=== PATIENT | female | born 1960 ===

== ENCOUNTER 2017-09-19 07:11 | Day surgery (SDC) | payer MEDICARE, MEDICAID ==
[2014-09-12 11:29] VITALS: BMI 28.3
[2017-09-19] MEDS ORDERED: Lidocaine 1% w Epi 1:100,000 Inj ONE (07:47)
[2017-09-19 08:11] VITALS: TEMP 98.8
[2017-09-19] MEDS ORDERED: Clindamycin 150 mg/mL Inj ONE (08:58)
[2017-09-19] MEDS ORDERED: Propofol 10 mg/ml Inj (20 ML) ONE (09:12)
[2017-09-19] MEDS ORDERED: Midazolam 2 MG/2 ML VIAL ONE (09:12)
[2017-09-19] MEDS ORDERED: Sodium Chloride 0.9% 1,000 ML IV SCH (10:00)
[2017-09-19 11:08] VITALS: RESP 18
[2017-09-19 11:19] VITALS: BP 121/57; PULSE 76; O2SAT 98
--- NOTE | 2017-09-19 11:27 | RAD ---
PROCEDURE: Fluoroscopy up to 1 hour HISTORY: REMOVAL SPINAL CORD STIMULATOR COMPARISON: TECHNIQUE: Fluoroscopy was provided in the operating room. 14.5 seconds of fluoro time were used. Five images were submitted FINDINGS: The study shows removal of the stimulator device over the right side of the pelvis IMPRESSION: As above
--- NOTE | 2017-09-19 18:28 | OP ---
PROCEDURE DATE: 09/16/2017 TYPE OF SURGERY: Removal of spinal cord stimulator lead and internal pulse generator under fluoroscopic guidance. PREOPERATIVE DIAGNOSES: 1. Post lumbar laminectomy syndrome. 2. Low back pain. 3. Failed spinal cord stimulator system. POSTOPERATIVE DIAGNOSES: 1. Post lumbar laminectomy syndrome. 2. Low back pain. 3. Failed spinal cord stimulator system. SURGEON: Maykel Dillon MD TYPE OF ANESTHESIA: Local anesthesia, conscious sedation. ANESTHESIOLOGIST: Bettie Montgomery MD BLOOD LOSS: Approximately 10 mL. METHOD OF SURGERY: The patient signed an informed consent from in the preop area after all risks and complications were explained and all questions were answered. An IV was started in the preop area and IV fluid administration continued throughout the procedure. Blood pressure, heart rate, pulse oximetry, cardiac monitoring were monitored throughout the procedure. Intravenous sedation appropriate to the procedure was administered by the anesthesiologist and was accurately reflected in the patient chart. Clindamycin, 600 mg was injected preoperatively. The patient was prepped and draped in sterile fashion in prone position. The patient's spine was surveyed under fluoroscopic visualization and appropriate anatomical landmarks were identified. Removal of spine cord stimulator leads and internal pulse generator - After appropriate local anesthesia with 1% lidocaine with epinephrine, I mixed with sodium bicarbonate as a buffer. Two incisions were made, one horizontal incision was made in right gluteal area above the internal pulse generator and one midline lumbar incision was made above the anchored spinal cord stimulator lead. First the right gluteal incision, which was about 6 cm horizontal incision was made using 11 blade. Then the subcutaneous tissue was dissected down till the internal pulse generator was retrieved. At this point, the internal pulse generator was pulled out of the right gluteal pocket. The leads were intact and appropriate hemostasis was maintained. The midline lumbar incision was made using 11 blade after appropriate local anesthesia and subcutaneous tissue was dissected down to the deep fascia where the leads were anchored to the deep fascia. The anchored leads were identified under direct fluoroscopic visualization and using blunt careful dissection, the anchored leads were dissected off the deep fascia. At this point, the leads were pulled out of the posterior epidural space and after the lead were retrieved out, then the internal pulse generator in the right gluteal area was pulled out with all the leads and then after doing that, the incisions and the epidural space were scanned again under the direct fluoroscopic visualization making sure that nothing was left and the leads and internal pulse generator were intact upon removal. This was followed by closure of both incisions using 2-0 Vicryl for subcutaneous tissue and skin glue Dermabond for the skin. The patient tolerated the procedure very well, was in good condition at the conclusion of the procedure. COMPLICATIONS: None. DISPOSITION: 1. The patient was discharged to recovery room in good condition. 2. The patient to apply ice pack to the incision site. 3. The patient to return to the office in 2 weeks for followup. 4. Postoperative instructions were handed and explained to the patient. Maykel Dillon MD
== END 2017-09-19 11:40 | disposition home or self-care (01) ==
LOC: SDS 07:11
PROVIDERS: ATTEND Specialist
DX: M96.1 Postlaminectomy syndrome, not elsewhere classified (principal); Z88.0 Allergy status to penicillin; Z91.040 Latex allergy status; Z91.018 Allergy to other foods; Z91.010 Allergy to peanuts
CPT/HCPCS: 63688; J2001; J2250; J2704; J3010; J7040; J7120

== ENCOUNTER 2018-10-29 16:18 | Emergency (ER) | payer MEDICARE, MEDICAID ==
[2018-10-29 16:19] VITALS: BMI 28.3
[2018-10-29 16:37] VITALS: RESP 18; TEMP 98
[2018-10-29] MEDS ORDERED: Sodium Chloride 0.9% 1,000 ML IV SCH (16:45)
--- NOTE | 2018-10-29 17:15 | ED PDOC ---
Arrival/HPI - General Chief Complaint: Headache Time Seen by Provider: 10/29/18 16:26 Historian: Patient, Family (daughter helped provide information) - History of Present Illness Narrative History of Present Illness (Text): 10/29/18 16:38 58 F with PMHx of asthma, hypertension, presents with cc of bilateral headache described as constant pounding for past 4-5 days, worse this morning. Pt's daughter reports pt took medicine for hypertension as usual this morning and again 2 hours ago, noting patient's blood pressure was about 178 when first checked and then approximately 191/100 when checked again. Pt states headache was mild at first, noting associated neck stiffness. Daughter reports pt sometimes gets headaches like this when her blood pressure goes up, noting occasional neck pains and back pain. Pt denies any fever, vomiting, or any other complaint. PMD: Nicolas Portillo Time/Duration: > week (pt notes onset as past 4-5 days, worse this morning) Symptom Onset: Gradual Symptom Course: Unchanged Quality: Other (pt describes headache as constant pounding ) Activities at Onset: Light Past Medical History - Provider Review Nursing Documentation Reviewed: Yes - Infectious Disease Hx of Infectious Diseases: None - Reproductive Menopause: Yes - Cardiac Hx Pacemaker: No - Pulmonary Hx Respiratory Disorders: Yes Hx Asthma: Yes - Neurological Hx Paralysis: No - Hematological/Oncological Hx Blood Transfusions: Yes Hx Blood Transfusion Reaction: No - Musculoskeletal/Rheumatological Hx Musculoskeletal Disorders: Yes - Psychiatric Hx Emotional Abuse: No Hx Physical Abuse: No Hx Substance Use: No - Surgical History Hx Hysterectomy: Yes Hx Joint Replacement: Yes Hx Musculoskeletal Surgery: Yes Hx Open Reduction Internal Fixation: Yes - Anesthesia Hx Anesthesia Reactions: No Hx Malignant Hyperthermia: No - Suicidal Assessment Feels Threatened In Home Enviroment: No Family/Social History - Physician Review Nursing Documentation Reviewed: Yes Family/Social History: No Known Family HX Smoking Status: Never Smoked Hx Alcohol Use: No Hx Substance Use: No Hx Substance Use Treatment: No Allergies/Home Meds Allergies/Adverse Reactions: Allergies latex Allergy (Severe, Verified 09/15/17 08:17) RASH peanut Allergy (Severe, Verified 09/15/17 08:17) RASH Penicillins Allergy (Severe, Verified 09/15/17 08:17) RASH sesame oil Allergy (Severe, Verified 09/15/17 08:17) RASH Home Medications: Home Meds Medication Instructions Recorded Confirmed Montelukast [Singulair] 10 mg PO DAILY 05/19/12 10/29/18 Albuterol HFA [Ventolin HFA 90 0.09 mg IH PRN PRN 09/15/17 10/29/18 mcg/actuation (8 g)] Multivitamin [Daily Melissa] 1 tab PO DAILY 09/15/17 10/29/18 Oxymorphone HCl [Opana ER] 30 mg PO BID 09/15/17 10/29/18 Pregabalin [Lyrica] 75 mg PO BID 09/15/17 10/29/18 Tizanidine HCl [Zanaflex] 8 mg PO HS 09/15/17 10/29/18 Zolpidem [Ambien] 10 mg PO HS 09/15/17 10/29/18 oxyCODONE [oxycodone Hydrochloride] 10 mg PO QID PRN 09/15/17 10/29/18 amLODIPine [Norvasc] 2.5 mg PO DAILY 10/29/18 10/29/18 Review of Systems - Physician Review All systems were reviewed & negative as marked: Yes (All other systems negative except that noted in the HPI.) Physical Exam - Physical Exam Narrative Physical Exam (Text): 10/29/18 16:38 Gen: VS reviewed, alert, well developed, well nourished, nontoxic, mild distress Eye: EOMI, PERRL. Photophobia. Neck: no JVD, supple, no adenopathy CV: regular rate, regular rhythm, no rubs, no murmer, S1, S2 Pulm: no distress, clear to auscultation no wheeze, no rhonchi, breath sounds equal, no rales. Abd: soft, nontender, no guarding, no rebound, no rigidity Ext: no edema. Skin: good color, no rash, no cyanosis. Psych: responds appropriately to questions, normal affect. Neuro: oriented x 3, CN2-12 intact grossly, motor intact, sensation intact. Vital Signs Reviewed: Yes Vital Signs Temp Pulse Resp BP Pulse Ox 10/29/18 16:36 98 F 70 18 155/71 H 94 L Temperature: Afebrile Blood Pressure: Hypertensive Pulse: Regular Respiratory Rate: Normal Appearance: Positive for: Well-Appearing, Non-Toxic Pain Distress: Mild Mental Status: Positive for: Alert and Oriented X 3 Medical Decision Making ED Course and Treatment: 10/29/18 16:38 Impression: 58 F presents with cc of bilateral headache described as constant pounding for past 4-5 days, worse this morning. Differential Diagnosis included but are not limited to: Plan: -- CT of head w/o contrast -- CMP -- Labs -- Imitrex Inj 6mg SC -- Reglan 10mg IVP -- IV fluids -- Tylenol 325mg tab PO -- Reassess and disposition Prior Visits: Notes and results from previous visits were reviewed. Progress Notes: 10/29/18 18:41 patient reports over 50% improvement of headache, no longer is photophobic, is now able to sit and ambulate without distress. at this time am awaiting CT result to rule out ICH in light of severe hypertension and will observe clinically. 10/29/18 19:29 patient feels much better and ready to go home. she now reports a significant improvement in headache. patient does no exhibit meningismus, is nontoxic appearing and stable discharge. it was recommended that the patient follow up with a neurologist and the patient reports that she already has one. clinical presentation consisteent with migraine headache. there were no acute severe signs of this headache such thunderclap, fever, trauma, or neuro deficits. - RAD Interpretation Narrative RAD Interpretations (Text): CT of head reviewed by radiologist, shows: Electronically signed on Oct 29, 2018 6:39:31 PM by: Marco Garcia M.D., FINDINGS: BRAIN No acute intraparenchymal hemorrhage. No mass lesion. No CT evidence for acute territorial infarct. No midline shift or extra-axial collections. VENTRICLES: No hydrocephalus. ORBITS: The orbits are unremarkable. SINUSES AND MASTOIDS: The paranasal sinuses and mastoid air cells are clear. BONES: No fracture. SOFT TISSUES: Unremarkable. IMPRESSION: No acute intracranial abnormality. Radiology Orders: 10/29/18 16:46 HEAD W/O CONTRAST [CT] Stat Bearing Maker: Radiologist - Medication Orders Current Medication Orders: Sodium Chloride (Sodium Chloride 0.9%) 1,000 mls @ 150 mls/hr IV .[id number] YENI Last Admin: 10/29/18 17:01 Dose: 150 mls/hr eMAR Start Stop Document 10/29/18 17:01 GMD (Rec: 10/29/18 17:01 D [facility]-20) Intravenous Solution Start Date 10/29/18 Start Time 17:01 Discontinued Medications Acetaminophen (Tylenol 325mg Tab) 975 mg PO STAT STA Stop: 10/29/18 16:45 Last Admin: 10/29/18 17:02 Dose: 975 mg Metoclopramide HCl (Reglan) 10 mg IVP STAT STA Stop: 10/29/18 16:45 Last Admin: 10/29/18 17:02 Dose: 10 mg IVP Administration Document 10/29/18 17:02 GMD (Rec: 10/29/18 17:02 GMD [facility] [place]-20) Charges for Administration # of IVP Administrations 1 Sumatriptan Succinate (Imitrex Inj) 6 mg SC STAT STA Stop: 10/29/18 16:45 Last Admin: 10/29/18 17:02 Dose: 6 mg Subcutaneous Administrations Document 10/29/18 17:02 GMD (Rec: 10/29/18 17:02 GMD [facility] [place]-20) Injection Site MAR Injection Site Left Deltoid Charges for Administration # of Subcutaneous Administrations 1 - Scribe Statement The provider has reviewed the documentation as recorded by the Scribe Cami Juarez All medical record entries made by the Scribe were at my direction and personally dictated by me. I have reviewed the chart and agree that the record accurately reflects my personal performance of the history, physical exam, medical decision making, and the department course for this patient. I have also personally directed, reviewed, and agree with the discharge instructions and disposition. Disposition/Present on Arrival - Present on Arrival Any Indicators Present on Arrival: No History of DVT/PE: No History of Uncontrolled Diabetes: No Urinary Catheter: No History of Decub. Ulcer: No History Surgical Site Infection Following: None - Disposition Have Diagnosis and Disposition been Completed?: Yes Diagnosis: Migraine headache Disposition: HOME/ ROUTINE Disposition Time: 19:31 Patient Plan: Discharge Condition: STABLE Discharge Instructions (ExitCare): Migraine Headache (DC) Additional Instructions: Return for any new or worsening symptoms. Follow up with your neurologist as soon as possible. Call tomorrow to make an appointment. DIMA TEAGUE, thank you for letting us take care of you today. Your provider was Dr. Buster Bernal and you were treated for migraine headache. The emergency medical care you received today was directed at your acute symptoms. If you were prescribed any medication, please fill it and take as directed. It may take several days for your symptoms to resolve. Return to the Emergency Department if your symptoms worsen, do not improve, or if you have any other problems. Please contact your doctor or call one of the physicians/clinics you have been referred to that are listed on the Patient Visit Information form that is included in your discharge packet. Bring any paperwork you were given at discharge with you along with any medications you are taking to your follow up visit. Our treatment cannot replace ongoing medical care by a primary care provider outside of the emergency department. Thank you for allowing the [facility] team to be part of your care today. If you had an X-Ray or CT scan: A Radiologist will review the ED reading if any change in treatment is needed we will contact you. If you had a blood, urine, or wound culture: It will take several days for the results, if any change in treatment is needed we will contact you. If you had an STI test: It will take 48 hours for the results. Please call after 1 week if you have not heard back. Referrals: Nicolas Benitez, DO [Primary Care Provider] - Follow up with primary Forms: [employer] (Iranian)
[2018-10-29 17:18] LABS: BASO # 0.01 K/mm3 (0.0-2.0); BASO % 0.2 % (0.0-3.0); EOS # 0.1 (0.0-0.7); EOS % 2.4 % (1.5-5.0); GRAN # 4.06 (1.4-6.5); HEMOGLOBIN 13.1 g/dL (12.0-16.0); LYMPH # 1.2 (1.2-3.4); LYMPH % 20.2 % (22.0-35.0); MEAN CELL VOLUME 92.3 fl (80.0-105.0); MEAN CORPUSCULAR HEMOGLOBIN 30.8 pg (25.0-35.0); MEAN CORPUSCULAR HGB CONC 33.3 g/dl (31.0-37.0); MEAN PLATELET VOLUME 9.6 fl (7.0-11.0); MONO # 0.4 (0.1-0.6); MONO % 7.2 % (1.0-6.0); RBC 4.26 10^6/uL (3.5-6.1); WHITE BLOOD COUNT 5.8 10^3/uL (4.5-11.0)
[2018-10-29 17:22] LABS: PARTIAL THROMBOPLASTIN TIME 30.5 Seconds (25.1-36.5); PROTHROMBIN TIME 11.4 SECONDS (9.4-12.5)
[2018-10-29 17:28] LABS: ALB/GLOB RATIO 1.1 (1.1-1.8); ALBUMIN 4.1 g/dL (3.0-4.8); ALT/SGPT 25 U/L (7-56); AST/SGOT 30 U/L (14-36); BLOOD UREA NITROGEN 18 mg/dL (7-21); CALCIUM 9.2 mg/dL (8.4-10.5); GFR NON-AFRICAN AMERICAN > 60
[2018-10-29 19:23] VITALS: BP 115/65; PULSE 71; O2SAT 98
--- NOTE | 2018-10-30 08:26 | CT ---
Date of service: 10/29/2018 PROCEDURE: CT HEAD WITHOUT CONTRAST. HISTORY: headache, ICH? COMPARISON: None available. TECHNIQUE: Axial computed tomography images were obtained through the head/brain without intravenous contrast. Radiation dose: Total exam DLP = 1017.7 mGy-cm. This CT exam was performed using one or more of the following dose reduction techniques: Automated exposure control, adjustment of the mA and/or kV according to patient size, and/or use of iterative reconstruction technique. FINDINGS: HEMORRHAGE: No intracranial hemorrhage. BRAIN: No mass effect or edema. No atrophy or chronic microvascular ischemic changes. VENTRICLES: Unremarkable. No hydrocephalus. CALVARIUM: Unremarkable. PARANASAL SINUSES: Unremarkable as visualized. No significant inflammatory changes. MASTOID AIR CELLS: Unremarkable as visualized. No inflammatory changes. OTHER FINDINGS: None. IMPRESSION: Normal CT of the Head.
== END 2018-10-29 19:37 | disposition home or self-care (01) ==
LOC: ED 16:18
DX: G43.909 Migraine, unspecified, not intractable, without status migrainosus (principal); I10 Essential (primary) hypertension
CPT/HCPCS: 70450; 80053; 85025; 85610; 85730; 96372; 96374; 99285; J2765; J3030; J7030

== ENCOUNTER 2018-11-20 06:46 | Day surgery (SDC) | payer MEDICARE, MEDICAID ==
[2018-11-20 07:24] VITALS: BMI 28.3
[2018-11-20] MEDS ORDERED: Lidocaine 1% w Epi 1:100,000 Inj ONE ×2 (07:30→07:31)
[2018-11-20] MEDS ORDERED: Liquid Adhesive TOP ONE (07:30)
[2018-11-20] MEDS ORDERED: Bupivacaine 0.5% 50 ML IJ ONE (07:31)
[2018-11-20] MEDS ORDERED: Sevoflurane - Inhalation Anesthetic Liq (250 ml) ONE (07:50)
[2018-11-20] MEDS ORDERED: Midazolam 2 MG/2 ML VIAL ONE (08:00)
[2018-11-20] MEDS ORDERED: Propofol 10 mg/ml Inj (20 ML) ONE (08:00)
[2018-11-20] MEDS ORDERED: Vancomycin 1 g Inj ONE (08:17)
[2018-11-20] MEDS ORDERED: Bupivacaine 0.5% Inj(30mL) IJ ONE (08:25)
[2018-11-20] MEDS ORDERED: Lidocaine 1% w Epi 1:100,000 Inj IJ ONE (08:25)
--- NOTE | 2018-11-20 09:23 | PCM.SURG1 ---
Surgeon's Initial Post Op Note - Surgeon's Notes Surgeon: Dr. Cleveland Johnson Utility System Repairer: Sachi Mohr, PGY2; Thompson Randall, PGY3 Type of Anesthesia: General LMA Anesthesia Administered By: Dr. Cordero Pre-Operative Diagnosis: left nipple discharge, dilated left breast ducts Operative Findings: epressible bloody nipple discharge, no palpable masses Post-Operative Diagnosis: same Operation Performed: left breast ductal excision Specimen/Specimens Removed: breast tissue from 7-8 o'clock, subareoalar, short tag medial, long tag towards nipple Estimated Blood Loss: EBL {In ML}: 5 Blood Products Given: N/A Drains Used: No Drains Post-Op Condition: Fair Date of Surgery/Procedure: 11/20/18 Time of Surgery/Procedure: 08:00
[2018-11-20 10:42] VITALS: RESP 18; TEMP 97.6
[2018-11-20 11:35] VITALS: BP 125/63; PULSE 91; O2SAT 97
--- NOTE | 2018-12-08 14:40 | OP ---
PROCEDURE DATE: 11/20/2018 PREOPERATIVE DIAGNOSIS: Bleeding from the left nipple at about 7 o' clock showed an intraductal papilloma. DESCRIPTION OF PROCEDURE: In the operating room, the patient was identified by name, name of procedure, laterality, my stoney, and the consent. The area was prepped with chlorhexidine, and after the appropriate three minutes, when it was dry, it was prepped and draped. The circumareolar incision was made centered around 7 o' clock and this was used to core out the ducts in this quadrant. Going laterally or actually medially, in a radial direction from the nipple, the underlying tissue was removed. The areola was cleaned out. There was nothing residual. There was nothing remarkable beyond. The area was cauterized. The incision was closed with Vicryl followed by subcuticular PDS. Pressure dressing was applied followed by surgery bra. The patient was taken to recovery room in good condition after the sponge and needle counts were declared as correct and the wound was injected with Marcaine. Cleveland Johnson MD
== END 2018-11-20 12:10 | disposition home or self-care (01) ==
LOC: SDS 06:46
PROVIDERS: ATTEND Surgery
DX: D24.2 Benign neoplasm of left breast (principal); I10 Essential (primary) hypertension

== ENCOUNTER 2019-02-08 08:32 | Outpatient (CLI) | payer MEDICARE, MEDICAID | END 2019-02-08 08:33 | disposition home or self-care (01) | LOC: PAT 08:32 ==

== ENCOUNTER 2019-02-12 06:22 | Day surgery (SDC) | payer MEDICARE, MEDICAID ==
[2019-02-12] MEDS ORDERED: Bupivacaine 0.5% 50 ML IJ ONE ×3 (07:23→08:23)
[2019-02-12 07:31] VITALS: BMI 28.3
[2019-02-12] MEDS ORDERED: Propofol 10 mg/ml Inj (20 ML) ONE (07:52)
[2019-02-12] MEDS ORDERED: Midazolam 2 MG/2 ML VIAL ONE ×2 (07:52→08:20)
[2019-02-12] MEDS ORDERED: Methylene Blue 10 mg/mL(10ml) IV ONE (08:28)
[2019-02-12] MEDS ORDERED: HYDROmorphone 0.5 mg/0.5 ml ISec IVP PRN (09:05)
[2019-02-12] MEDS ORDERED: Oxycodone/Acetaminophen 5/325 mg Tab PO PRN (09:07)
--- NOTE | 2019-02-12 09:07 | PCM.SURG1 ---
Surgeon's Initial Post Op Note - Surgeon's Notes Surgeon: Dr Johnson Ve Teacher: Dr Gomez PGY4, Darell MS3 Type of Anesthesia: General Endo Anesthesia Administered By: Dr Campbell Pre-Operative Diagnosis: Intraductal papilloma Operative Findings: see dictation Post-Operative Diagnosis: as above Operation Performed: Breast biopsy with excision of previous surgical site Specimen/Specimens Removed: previous surgical scar w/ underlying duct Estimated Blood Loss: EBL {In ML}: 5 Blood Products Given: N/A Drains Used: No Drains Post-Op Condition: Good Date of Surgery/Procedure: 02/12/19 Time of Surgery/Procedure: 09:06
[2019-02-12] MEDS ORDERED: Lactated Ringer's 1,000 ML IV SCH (09:15)
[2019-02-12] MEDS ORDERED: Oxycodone/Acetaminophen 5/325 mg Tab PO ONE (09:55)
[2019-02-12] MEDS ORDERED: Oxycodone/Acetaminophen 5/325 mg Tab ONE (09:57)
[2019-02-12 09:58] VITALS: RESP 18; TEMP 97.7
[2019-02-12 10:58] VITALS: BP 128/88; PULSE 73; O2SAT 100
--- NOTE | 2019-03-01 14:15 | OP ---
PROCEDURE DATE: 02/12/2019 PREOPERATIVE DIAGNOSIS: Recurrent drainage from the breast biopsy, left breast. DESCRIPTION OF PROCEDURE: It was done for an adenoma. The area was identified, there was no punctate that we could find although there was a pinpoint drainage site. The circumareolar incision was made excising some tissue and dissecting down to the breast tissue and also reduced to prolapse it out. Circumferentially, this was cauterized and there was no bleeding or abscess or mass really that I can see. Incision was approximated with Vicryl. Skin was closed with Vicryl and subcuticular PDS. A light pressure dressing was applied. The patient was taken to recovery room in good condition after the sponge and needle counts were declared as correct. Cleveland Johnson MD
== END 2019-02-12 11:30 | disposition home or self-care (01) ==
LOC: SDS 06:22
PROVIDERS: ATTEND Surgery
DX: D24.2 Benign neoplasm of left breast (principal); N64.52 Nipple discharge; I10 Essential (primary) hypertension; G89.29 Other chronic pain; M79.606 Pain in leg, unspecified; Z91.040 Latex allergy status; Z91.010 Allergy to peanuts; Z88.0 Allergy status to penicillin; Z91.018 Allergy to other foods
CPT/HCPCS: 19120; 88307; J1170; J2250; J2405; J2704; J3010; J7120 ×2

== ENCOUNTER 2019-03-01 16:01 | Observation (INO) | payer MEDICARE, MEDICAID ==
--- NOTE | 2019-03-01 16:12 | ED PDOC ---
Arrival/HPI - General Chief Complaint: Shortness Of Breath Time Seen by Provider: 03/01/19 16:03 Historian: Patient - History of Present Illness Narrative History of Present Illness (Text): 03/01/19 16:51 58 y/o female with PMH of asthma and HTN sent to ED by PMD Dr. Benitez for evaluation of SOB and bilateral lower extremity swelling x 2 days. Associated chest tightness typical of her asthma. Pt saw PHARMACY ORDER ENTRY TECHNICIAN yesterday who told her to double her lasix dose for the day. When symptoms did not resolve, pt presented to PMD office again this morning, who sent her here for admission for possible CHF. Last dose of lasix was this morning. Pt admits to being compliant with medications. Denies fever, chills, chest pain, cough, abdominal pain, nausea, vomiting, headache, dizziness, or any other associated symptoms. Past Medical History - Provider Review Nursing Documentation Reviewed: Yes - Infectious Disease Hx of Infectious Diseases: None - Cardiac Hx Pacemaker: No - Pulmonary Hx Respiratory Disorders: Yes Hx Asthma: Yes - Neurological Hx Paralysis: No - Hematological/Oncological Hx Blood Transfusions: Yes Hx Blood Transfusion Reaction: No - Musculoskeletal/Rheumatological Hx Musculoskeletal Disorders: Yes - Psychiatric Hx Emotional Abuse: No Hx Physical Abuse: No Hx Substance Use: No - Surgical History Hx Hysterectomy: Yes Hx Joint Replacement: Yes Hx Musculoskeletal Surgery: Yes Hx Open Reduction Internal Fixation: Yes - Anesthesia Hx Anesthesia Reactions: No Hx Malignant Hyperthermia: No - Suicidal Assessment Feels Threatened In Home Enviroment: No Family/Social History - Physician Review Nursing Documentation Reviewed: Yes Family/Social History: No Known Family HX Smoking Status: Never Smoked Hx Alcohol Use: No Hx Substance Use: No Hx Substance Use Treatment: No Allergies/Home Meds Allergies/Adverse Reactions: Allergies latex Allergy (Severe, Verified 02/08/19 09:29) RASH peanut Allergy (Severe, Verified 02/08/19 09:29) RASH Penicillins Allergy (Severe, Verified 02/08/19 09:29) RASH sesame oil Allergy (Severe, Verified 02/08/19 09:29) RASH flu vaccine Allergy (Uncoded 03/01/19 18:23) SWELLING Home Medications: Home Meds Medication Instructions Recorded Confirmed Montelukast [Singulair] 10 mg PO QPM 05/19/12 03/01/19 Albuterol HFA [Ventolin HFA 90 0.09 mg IH PRN PRN 09/15/17 03/01/19 mcg/actuation (8 g)] Multivitamin [Daily Melissa] 1 tab PO DAILY 09/15/17 03/01/19 Pregabalin [Lyrica] 75 mg PO BID 09/15/17 03/01/19 Tizanidine HCl [Zanaflex] 8 mg PO HS 09/15/17 03/01/19 oxyCODONE [oxycodone Hydrochloride] 15 mg PO TID 09/15/17 03/01/19 amLODIPine [Norvasc] 2.5 mg PO DAILY 10/29/18 03/01/19 Doxepin HCl [Silenor] 6 mg PO HS 11/14/18 03/01/19 Hydrocodone Bitartrate [Zohydro ER] 20 mg PO BID 11/14/18 03/01/19 Meloxicam [Mobic] 7.5 mg PO DAILY 02/08/19 03/01/19 Furosemide [Lasix] 20 mg PO PRN PRN 03/01/19 03/01/19 Review of Systems - Review of Systems Constitutional: Normal. absent: Fevers Eyes: Normal. absent: Vision Changes ENT: Normal. absent: Sore Throat, Sinus Congestion Respiratory: SOB Cardiovascular: Normal. absent: Chest Pain, Palpitations, Syncope Gastrointestinal: Normal. absent: Abdominal Pain, Nausea, Vomiting Genitourinary Female: Normal. absent: Dysuria, Frequency Musculoskeletal: Normal. absent: Arthralgias, Back Pain, Neck Pain Skin: Normal. absent: Rash Neurological: Normal. absent: Headache, Dizziness Endocrine: Normal Hemo/Lymphatic: Normal Psychiatric: Normal Physical Exam Vital Signs Reviewed: Yes Temperature: Afebrile Blood Pressure: Normal Pulse: Regular Respiratory Rate: Normal Appearance: Positive for: Well-Appearing, Non-Toxic, Comfortable Pain Distress: None Mental Status: Positive for: Alert and Oriented X 3 - Systems Exam Head: Present: Atraumatic, Normocephalic Pupils: Present: PERRL Extroacular Muscles: Present: EOMI Conjunctiva: Present: Normal Mouth: Present: Moist Mucous Membranes Neck: Present: Normal Range of Motion. No: Meningeal Signs Respiratory/Chest: Present: Wheezes (bilateral diffuse inspiratory and expiratory wheezing), Decreased Breath Sounds (bilaterally). No: Respiratory Distress, Accessory Muscle Use, Rales, Retracting, Rhonchi, Tachypneic Cardiovascular: Present: Regular Rate and Rhythm, Normal S1, S2, Peripheal Pulses Present Abdomen: Present: Normal Bowel Sounds. No: Tenderness, Distention, Peritoneal Signs, Rebound, Guarding Back: Present: Normal Inspection. No: CVA Tenderness Upper Extremity: Present: Normal Inspection, Normal ROM, NORMAL PULSES, Neurovascularly Intact, Capillary Refill < 2s. No: Cyanosis, Edema, Temperature Abnormalties Lower Extremity: Present: Normal Inspection, Edema (bilateral lower extremity), Normal ROM, Neurovascularly Intact, Capillary Refill < 2 s. No: Temperature Abnormalties Neurological: Present: GCS=15, CN II-XII Intact, Speech Normal, Motor Func Grossly Intact, Normal Sensory Function, Gait Normal Skin: Present: Warm, Dry, Normal Color. No: Rashes Psychiatric: Present: Alert, Oriented x 3, Normal Insight, Normal Concentration, Normal Affect, Normal Mood Medical Decision Making ED Course and Treatment: 03/01/19 16:09 Initial Plan: * CBC, CMP * Coags * Troponin * BNP * Cardiac Iso * VBG shock * CXR * EKG * Bilateral Lower Extremity Venous Duplex * Solumedrol * Duoneb EKG shows rate 79; NSR; Normal Intervals; No STEMI or other signs of ischemia 16:56 Pt refusing duoneb, states that Dr. Benitez told her she is not able to have duoneb because she had a reaction to the flu vaccine. 17:20 Bloodwork reviewed, unremarkable Troponin and BNP negative VBG wnl CXR shows no active disease 17:29 Spoke with admitting doctor Dr. Benitez, who accepted patient to remote telemetry with diagnosis of asthma exacerbation and peripheral edema. Requesting cardiology and pulmonary consults with Lasix 40mg IVP. Pt updated with change in disposition. Pt resting comfortably in stretcher with stable vital signs at this time. - Lab Interpretations Lab Results: 03/01/19 16:39 03/01/19 16:39 Lab Results 03/01/19 16:50: Urine Color Yellow, Urine Appearance Clear, Urine pH 7.5, Ur Specific [place] 1.010, Urine Protein Negative, Urine Glucose (UA) Negative, Urine Ketones Negative, Urine Blood Negative, Urine Nitrate Negative, Urine Bilirubin Negative, Urine Urobilinogen 0.2, Ur Leukocyte Esterase Negative 03/01/19 16:39: PT 11.3, INR 1.00, APTT 35.7 03/01/19 16:39: Sodium 139, Chloride 101, Potassium 3.6, Carbon Dioxide 33, Anion Gap 9 L, BUN 16, Creatinine 0.6 L, Est GFR ( Amer) > 60, Est GFR (Non-Af Amer) > 60, Random Glucose 83, Calcium 9.4, Magnesium 2.0, Total Bilirubin 0.3, AST 29, ALT 20, Alkaline Phosphatase 103, Lactate Dehydrogenase 616, Total Creatine Kinase 82, Troponin I < 0.01, NT-Pro-B Natriuret Pep 53.1, Total Protein 7.7, Albumin 4.2, Globulin 3.4, Albumin/Globulin Ratio 1.2 03/01/19 16:39: WBC 4.9, RBC 4.15, Hgb 12.5, Hct 38.8, MCV 93.5, MCH 30.1, MCHC 32.2, RDW 13.0, Plt Count 271, MPV 9.7, Neut % (Auto) 54.9, Lymph % (Auto) 29.1, [place] % (Auto) 8.1 H, Eos % (Auto) 7.5 H, Baso % (Auto) 0.4, Lymph # (Auto) 1.4, [place] # (Auto) 0.4, Eos # (Auto) 0.4, Baso # (Auto) 0.02, Absolute Neuts (auto) 2.69 03/01/19 16:38: pO2 27 L, VBG pH 7.38, VBG pCO2 57.0, VBG HCO3 33.7 H, VBG Total CO2 35.4 H, VBG O2 Sat (Calc) 54.7, VBG Base Excess 6.8 H, VBG Potassium 3.5 L, Sodium 139.0, Chloride 102.0, Glucose 84, Lactate 0.6 L, FiO2 21.0, Venous Blood Potassium 3.5 L I have reviewed the lab results: Yes - RAD Interpretation Narrative RAD Interpretations (Text): 03/01/19 17:38 CXR: LUNGS: No focal consolidation. Please note that chest x-ray has limited sensitivity for the detection of pulmonary masses. PLEURA: No significant pleural effusion identified. No definite pneumothorax . CARDIOVASCULAR: Heart size appears within normal limits. No significant atherosclerotic c alcification present. OSSEOUS STRUCTURES: Degenerative changes. VISUALIZED UPPER ABDOMEN: Unremarkable. OTHER FINDINGS: None. IMPRESSION: No focal consolidation. [place] Planner: Radiologist - EKG Interpretation EKG Interpretation (Text): 03/01/19 16:58 Rate 79; NSR; Normal Intervals; No STEMI or other signs of ischemia Interpreted by ED Physician: Yes Type: 12 lead EKG Comparison: Com.w/previous EKG Disposition/Present on Arrival - Present on Arrival Any Indicators Present on Arrival: No History of DVT/PE: No History of Uncontrolled Diabetes: No Urinary Catheter: No History of Decub. Ulcer: No History Surgical Site Infection Following: None - Disposition Have Diagnosis and Disposition been Completed?: Yes Diagnosis: Asthma exacerbation, Peripheral edema Disposition: HOSPITALIZED Disposition Time: 17:29 Patient Plan: Admission Patient Problems: Current Active Problems Problem Status Onset Asthma exacerbation Acute Peripheral edema Acute Condition: STABLE
[2019-03-01] MEDS ORDERED: Albuterol-Ipratrop 3 mg / 0.5 (3 ml) UD IH STA (16:16)
[2019-03-01 16:50] LABS: BASO # 0.02 K/mm3 (0.0-2.0); BASO % 0.4 % (0.0-3.0); EOS # 0.4 (0.0-0.7); EOS % 7.5 % (1.5-5.0); HEMOGLOBIN 12.5 g/dL (12.0-16.0); LYMPH # 1.4 (1.2-3.4); LYMPH % 29.1 % (22.0-35.0); MEAN CELL VOLUME 93.5 fl (80.0-105.0); MEAN CORPUSCULAR HEMOGLOBIN 30.1 pg (25.0-35.0); MEAN CORPUSCULAR HGB CONC 32.2 g/dl (31.0-37.0); MEAN PLATELET VOLUME 9.7 fl (7.0-11.0); MONO # 0.4 (0.1-0.6); MONO % 8.1 % (1.0-6.0); RBC 4.15 10^6/uL (3.5-6.1); WHITE BLOOD COUNT 4.9 10^3/uL (4.5-11.0)
[2019-03-01 16:51] LABS: VENOUS BLOOD GAS BASE EXCESS 6.8 mmol/L (0.0-2.0); VENOUS BLOOD GAS PO2 27 mm/Hg (30-55); VENOUS BLOOD PH 7.38 (7.32-7.43)
[2019-03-01 16:59] LABS: PARTIAL THROMBOPLASTIN TIME 35.7 Seconds (26.9-38.3); PROTHROMBIN TIME 11.3 SECONDS (9.4-12.5)
[2019-03-01 17:05] LABS: PH,URINE 7.5 (4.7-8.0); URINE APPEARANCE CLEAR (CLEAR); URINE BILIRUBIN NEGATIVE (NEGATIVE); URINE BLOOD NEGATIVE (NEGATIVE); URINE COLOR YELLOW (YELLOW); URINE GLUCOSE (UA) NEGATIVE (NEGATIVE); URINE LEUKOCYTE ESTERASE NEGATIVE Leu/uL (NEGATIVE); URINE PROTEIN NEGATIVE mg/dL (<30 mg/dL); URINE UROBILINOGEN 0.2 E.U./dL (<1 E.U./dL)
[2019-03-01 17:07] LABS: ALB/GLOB RATIO 1.2 (1.1-1.8); ALBUMIN 4.2 g/dL (3.0-4.8); ALT/SGPT 20 U/L (7-56); AST/SGOT 29 U/L (14-36); BLOOD UREA NITROGEN 16 mg/dL (7-21); CALCIUM 9.4 mg/dL (8.4-10.5); GFR NON-AFRICAN AMERICAN > 60
[2019-03-01 17:13] LABS: B-TYPE NATRIURETIC PEPTIDE 53.1 pg/mL (0-450); TROPONIN I < 0.01 ng/mL
--- NOTE | 2019-03-01 17:31 | RAD ---
HISTORY: SOB COMPARISON: Chest xray performed 11/14/18 TECHNIQUE: Chest, one view. FINDINGS: LUNGS: No focal consolidation. Please note that chest x-ray has limited sensitivity for the detection of pulmonary masses. PLEURA: No significant pleural effusion identified. No definite pneumothorax . CARDIOVASCULAR: Heart size appears within normal limits. No significant atherosclerotic calcification present. OSSEOUS STRUCTURES: Degenerative changes. VISUALIZED UPPER ABDOMEN: Unremarkable. OTHER FINDINGS: None. IMPRESSION: No focal consolidation.
[2019-03-01] MEDS ORDERED: Albuterol-Ipratrop 3 mg / 0.5 (3 ml) UD IH SCH (18:15)
[2019-03-01] MEDS ORDERED: Levalbuterol 0.63 MG/3 ML Inhal Soln UD IH SCH ×2 (18:45→19:27)
--- NOTE | 2019-03-01 19:20 | CARD ---
APPROVED REPORT Date of service: 03/01/2019 EKG Measurement Heart [id number] <Conclusion> Normal sinus rhythm Normal ECG
[2019-03-01] MEDS: Levalbuterol 0.63 MG/3 ML Inhal Soln UD IH SCH ×3 (19:45→20:06)
[2019-03-01] MEDS ORDERED: DOXEPIN HCL 6 MG PO SCH (22:00)
--- NOTE | 2019-03-01 22:18 | CP.PCM.PCO ---
<Ryder Kendrick - Last Filed: 03/01/19 22:15> Addendum Addendum: 03/01/19 22:15 Hospital does not carry patient's home Hydromorphone ER - 15 mg morphine ER given as 20 mg would me morphine equivalent and morphine tabs come in 15 and 30 mg formulation. Benadryl 25 mg PO given for sleep as hospital does not carry patients home Sienor which she takes for sleep. 03/01/19 22:16 <Mary Panda - Last Filed: 03/02/19 18:59> Attending/Attestation - Attestation I have personally seen and examined this patient.: No I have fully participated in the care of the patient.: No I have reviewed all pertinent clinical information: No
[2019-03-01] MEDS ORDERED: Morphine 15 mg SR Tab PO ONE (22:30)
[2019-03-01] MEDS ORDERED: oxyCODONE 10 mg Immediate Release Tab PO STA (22:33)
--- NOTE | 2019-03-01 22:33 | HP ---
DATE OF EXAM: 03/01/2019 HISTORY OF PRESENT ILLNESS: I saw her in the office today. She came in feeling short of breath, occasional wheeze. Her legs are much more swollen they were last time I saw her. She takes Lasix 20 mg every now and then, for the past 2 days she has been taking 40 mg and still the legs are getting worse. She has pitting edema in the office, which she walks about 10 yards, she is short of breath after stop. She is a 58-year-old female who has a past medical history of asthma, hypertension, and shortness of breath. She has some chest tightness and history of asthma. She doubled up the Lasix and got worse. I saw her in the office and I thought there was CHF going on with edema, I send her to the emergency room for IV Lasix, I am hoping to keep her overnight for an observation, get cardiopulmonary look at her, hopefully she will diurese well and we will get her out tomorrow. She has asthma. She has had blood transfusions. She has a history of hepatitis. PAST SURGICAL HISTORY: She has hysterectomy, joint replacement, musculoskeletal surgeries, open reduction and internal fixations. FAMILY HISTORY: Unknown family history. SOCIAL HISTORY: No smoker. No drinking. No drugs. ALLERGIES: SHE IS ALLERGIC TO LATEX, PEANUTS, PENICILLINS, AND SESAME ALLERGY. MEDICATIONS: She is on Singulair, Ventolin daily, vitamins, Lyrica, Zanaflex, oxycodone for chronic pain and she gets that from pain management doctor, Son George and Jenna. REVIEW OF SYSTEMS: No acute vision or hearing changes. No sore throat. There is shortness of breath. There is wheeze. There was chest pain earlier. No palpitations. No nausea, vomiting, constipation, or diarrhea. No problems urinating. No arthralgias, but there is chronic back pain. No skin rashes or ulcers appreciated. No headache or dizziness. The legs are very swollen. PHYSICAL EXAMINATION: VITAL SIGNS: 98.3 temperature, 89 pulse, 147/82 blood pressure, 18 respiratory rate, and 95% O2 sat on room air. GENERAL: She is little bit uncomfortable, well-appearing, alert and oriented x3, and little nervous. HEENT: Head; atraumatic and normocephalic. Extraocular muscles are intact. Throat is moist. NECK: Supple. No JVD. LUNGS: There is wheezes and congestion bilateral lungs. Occasional crackle and rales. HEART: Regular rate. Normal S1 and S2. ABDOMEN: Soft and nontender. Positive bowel sounds. No guarding. No rebound. No CVA tenderness. EXTREMITIES: She has +2/4 pitting edema on the left and +2/4 pitting edema on the NEUROLOGIC: GCS is 15. Cranial nerves II through XII grossly intact. SKIN: Warm and dry. Alert and oriented x3. LABORATORY DATA: She had multiple tests done. Chest x-ray showed no focal consolidation. EKG was normal sinus rhythm. No STEMI. She has a urine, which was clean. Sodium 139, potassium 3.6, BUN 16, creatinine 0.6, GFR is greater than 60, sugar is 83, calcium is 9.4, and magnesium is 2. Total bili is 0.3, AST is 29, ALT is 20, alk phos 103, and lactate dehydrogenase 616. Total creatine kinase is 82. Troponin I is less than 0.01. BNP is 53, total protein 7.7, and albumin is 4.2. Lactate was 0.6. She had a 7.38 pH. She had INR of 1. White count 4.9, hemoglobin 12.5, hematocrit 38.8 with 271 platelets. ASSESSMENT AND PLAN: She was not feeling well, is little short of breath, cough, and congestion. She will get little steroid, her regular medications, Lasix IV, and Pulmonary and Cardio eval. Hopefully, she is going to do well once I can discharge her tomorrow. She will be in observation for congestive heart failure with edema picture versus asthma on top of it. Nicolas Benitez DO KRYSTIAN
[2019-03-01] MEDS: MethylPREDNISolone 40 mg Vial IVP SCH (22:46)
[2019-03-01 23:23] VITALS: BMI 34.4
[2019-03-02] MEDS ORDERED: Levalbuterol 0.63 MG/3 ML Inhal Soln UD IH STA (00:14)
[2019-03-02 03:27] VITALS: RESP 18
[2019-03-02] MEDS ORDERED: oxyCODONE 10 mg Immediate Release Tab PO STA (06:30)
[2019-03-02 08:00] LABS: HEMOGLOBIN 12.5 g/dL (12.0-16.0); MEAN CELL VOLUME 92.3 fl (80.0-105.0); MEAN CORPUSCULAR HEMOGLOBIN 29.9 pg (25.0-35.0); MEAN CORPUSCULAR HGB CONC 32.4 g/dl (31.0-37.0); MEAN PLATELET VOLUME 10.3 fl (7.0-11.0); RBC 4.18 10^6/uL (3.5-6.1); RED CELL DISTRIBUTION WIDTH 12.9 % (11.5-14.5); WHITE BLOOD COUNT 7.1 10^3/uL (4.5-11.0)
[2019-03-02 08:19] LABS: ALBUMIN 3.8 g/dL (3.0-4.8); ALT/SGPT 12 U/L (7-56); AST/SGOT 25 U/L (14-36); BLOOD UREA NITROGEN 19 mg/dL (7-21); CALCIUM 9.4 mg/dL (8.4-10.5); GFR NON-AFRICAN AMERICAN > 60
[2019-03-02 08:55] VITALS: BP 151/77; PULSE 69; TEMP 97.5; O2SAT 94
[2019-03-02] MEDS: MethylPREDNISolone 40 mg Vial IVP SCH (09:26)
[2019-03-02] MEDS ORDERED: Potassium Chloride 20 mEq ER Tab PO ONE (09:53)
[2019-03-02] MEDS ORDERED: oxyCODONE 15 mg Immediate Release Tab PO SCH (10:00)
[2019-03-02] MEDS ORDERED: HYDROCODONE BITARTRATE 20 MG PO SCH (10:00)
[2019-03-02] MEDS ORDERED: Meloxicam 7.5 MG TAB PO SCH (10:00)
[2019-03-02] MEDS ORDERED: Multivitamin Therapeutic Tab PO SCH (10:00)
--- NOTE | 2019-03-02 16:15 | CON ---
DATE OF CONSULTATION: 03/02/2019 CARDIOLOGY CONSULTATION HISTORY: The patient is a 58-year-old woman, who presents with dyspnea. She has a long history of asthma. No previous cardiac history. She was given diuretics without help as an outpatient, and she was brought here for her dyspnea. PAST MEDICAL HISTORY: The patient's past medical history includes a history of hypertension, no angina, no previous myocardial infarction, no previous cardiac disease in the past. She does suffer from occasional pedal edema. She has had asthma since childhood. SOCIAL HISTORY: She denies smoking. REVIEW OF SYSTEMS: Review of systems were all related to her dyspnea as well as occasional pedal edema. No angina, no paroxysmal . PHYSICAL EXAMINATION: VITAL SIGNS: Blood pressure is 151/77, heart rate is in the 60s. NECK: Negative JVD. LUNGS: Expiratory wheezing. HEART: Reveals S1, S2. EXTREMITIES: Trace edema. LABORATORY DATA: Hemoglobin is 12.5, BUN and creatinine are unremarkable. The glucose is 208 after a steroid. IMPRESSION: 1. No evidence for congestive heart failure. 2. Dyspnea secondary to #3. 3. Asthma. 4. Hypertension. PLAN: Given these findings, we will discontinue her Lasix. We will obtain an echocardiogram to evaluate her LV function, which can be done as an outpatient if the patient is being discharged today. Otto Gibson MD
--- NOTE | 2019-03-02 16:38 | US ---
HISTORY: Leg pain and swelling. Evaluate for DVT PHYSICIAN(S): Otto Lynn MD. TECHNIQUE: Duplex sonography and color-flow Doppler with graded compression were used to evaluate the deep venous systems of both lower extremities. FINDINGS: The visualized deep venous systems of both lower extremities are sonographically normal and compressible. Normal wave forms and augmentation are seen. There is no sonographic evidence for deep venous thrombosis in the visualized segments of both lower extremities. Incidental note is made of dilatation of the right popliteal vein IMPRESSION: No sonographic evidence for deep venous thrombosis in the visualized segments of both lower extremities.
--- NOTE | 2019-03-03 01:04 | DS ---
HISTORY OF PRESENT ILLNESS: She is doing much better this morning. She is breathing much better. She diuresed very well with the Lasix IV. The legs are less swollen. She could walk to the bathroom okay. She is in much better spirits. I am going to discharge her today. MEDICATIONS: She is on Silenor, Zohydro, Lasix, Lyrica, Mobic, Norvasc, oxycodone, Singulair, Solu-Medrol which I will change it to prednisone when she goes home, Thera-Tabs and Zanaflex. PHYSICAL EXAMINATION VITAL SIGNS: She has a 97.5 temperature, 69 pulse, 151/77 blood pressure, 18 respiratory rate, and 94% O2 sat. HEENT: Head is atraumatic, normocephalic. HEART: Regular rate. LUNGS: With decreased breath sounds but clear to auscultation. No wheezes, no rhonchi, no rales. ABDOMEN: Soft, nontender. Positive bowel sounds. EXTREMITIES: Trace edema if any, much better than when she came in. LABORATORY DATA: She has 7.1 white count, 12.5 hemoglobin, 38.6 hematocrit with 274 platelets. She has 137 sodium, potassium is 3.5 I will give her a potassium pill this morning. BUN is 19, creatinine 0.5, GFR is greater than 60, sugar is 208, calcium is 9.4, AST is 25, ALT is 12, alk phos 103. Troponin I is less than 0.01, total protein 7.5. Urine was clean. ASSESSMENT AND PLAN: She should go home today. I will be seeing her in the office on Tuesday and Tuesday and she should have a good weekend. She is going to have her pharmacy call me and I will go over the medications with the pharmacy. She will be on prednisone 30 mg for 3 days, 20 mg for 3 days and 10 mg for 3 days. She could go back on a regular medications. She will also be on Lasix 40 mg daily. She had shortness of breath with edema. Nicolas Benitez DO
== END 2019-03-02 12:27 | disposition home or self-care (01) ==
LOC: ED 16:01 → ERH 17:40 → 3RSO 20:21
PROVIDERS: ADMIT Family Medicine; ATTEND Family Medicine
DX: J45.901 Unspecified asthma with (acute) exacerbation (principal); I10 Essential (primary) hypertension; Z79.899 Other long term (current) drug therapy
CPT/HCPCS: 36415; 71045; 80053; 81003; 82550; 82803; 83615; 83735; 83880; 84484; 85025; 85027; 85610; 85730; 93005; 93970; 94640; 96374; 96375; 96376; 99285; G0378; J1940; J2920; J2930

== ENCOUNTER → 2019-03-06 | Outpatient (CLI) | payer MEDICARE, MEDICAID | LOC: CARDIO 11:09 ==